=== PATIENT | male | born 1995 | race Caucasian/White ===

== ENCOUNTER 2018-03-06 01:11 | Emergency (ER) | payer OTHER ==
[~2018-03-06] VITALS: Ht 182.9 cm; Wt 99.8 kg
[2018-03-06 01:15] VITALS: BP 136/72
== END 2018-03-06 02:04 ==
LOC: ER 01:11
DX: F10.129 Alcohol abuse with intoxication, unspecified (principal)

== ENCOUNTER 2019-10-28 16:14 | Emergency (ER) | payer MEDICAID, OTHER ==
[~2019-10-28] VITALS: Ht 195.6 cm; Wt 106.6 kg
[2019-10-28 19:10] VITALS: BP 144/91
== END 2019-10-28 19:59 | disposition home or self-care (01) ==
LOC: ER 16:14
DX: F41.9 Anxiety disorder, unspecified (principal); J06.9 Acute upper respiratory infection, unspecified; F12.10 Cannabis abuse, uncomplicated; F15.10 Other stimulant abuse, uncomplicated

== ENCOUNTER 2020-05-14 00:57 | Emergency (ER) | payer MEDICAID | END 2020-05-14 01:25 | disposition left against medical advice (07) | LOC: ER 00:57 | DX: K08.89 Other specified disorders of teeth and supporting structures (principal); Z53.21 Procedure and treatment not carried out due to patient leaving prior to being seen by health care provider ==